=== PATIENT | female | born 1940 | race African-American/Black ===

== ENCOUNTER 2016-11-26 17:20 | Emergency (ER) | payer BC, MEDICARE ==
[~2016-11-26] VITALS: Ht 162.6 cm; Wt 64.0 kg
[2016-11-26] MEDS ORDERED: HYDR25TA PO (17:26)
[2016-11-26] MEDS ORDERED: ATEN-42 PO (17:26)
[2016-11-26 18:57] LABS: BASOPHILS % 0.9 % (0.0-2.0); EOSINOPHILS % 4.2 % (0.0-5.0); HEMATOCRIT. 34.4 % (36.0-48.0); HEMOGLOBIN. 11.7 g/dL (12.0-16.0); LYMPHOCYTES % 36.4 % (20.0-50.0); MEAN CORPUSCULAR HEMOGLOBIN 32.9 pg (28.0-32.0); MEAN CORPUSCULAR VOLUME 96.7 fL (81.0-99.0); MEAN PLATELET VOLUME 7.7 fl (7.4-10.4); MONOCYTES % 10.7 % (2.0-8.0); NEUTROPHILS % 47.8 % (40.0-76.0); PLATELET 263 x1000/uL (130-400); PROTHROMBIN TIME 10.6 sec (9.4-11.6); RED BLOOD CELL COUNT 3.56 mill/uL (4.2-5.4)
[2016-11-26 19:06] LABS: CARBON DIOXIDE 32 mEq/L (21-32); CHLORIDE 102 mEq/L (98-107); TROPONIN I < 0.02 ng/mL (0.00-0.04)
[2016-11-26] MEDS ORDERED: POTASSIUM CHLORIDE 20MEQ TABLET SR PO ONE (19:15)
[2016-11-26 20:00] VITALS: BP 135/79
== END 2016-11-26 20:06 | disposition home or self-care (01) ==
LOC: ER 17:20
DX: R07.9 Chest pain, unspecified (principal); R00.2 Palpitations; E87.6 Hypokalemia; I10 Essential (primary) hypertension
CPT/HCPCS: 36415; 71010; 80053; 83880; 84484; 85025; 85610; 93005; 99285

== ENCOUNTER 2017-07-17 19:16 | Emergency (ER) | payer MEDICARE ==
[~2017-07-17] VITALS: Ht 162.6 cm; Wt 64.0 kg
[~2017-07-17 19:16] MED LIST: ATEN-42 PO; HYDR25TA PO
[2017-07-18 00:35] VITALS: BP 167/70
[2017-07-18] MEDS ORDERED: ACETAMINOPHEN 325MG TABLET PO ONE (03:15)
== END 2017-07-18 03:46 | disposition home or self-care (01) ==
LOC: ER 22:14
DX: M77.31 Calcaneal spur, right foot (principal); I10 Essential (primary) hypertension; Z85.3 Personal history of malignant neoplasm of breast
CPT/HCPCS: 73630; 99284

== ENCOUNTER 2018-11-02 19:10 | Emergency (ER) | payer MEDICARE ==
[~2018-11-02] VITALS: Ht 162.6 cm; Wt 64.0 kg
[2018-11-02 19:19] VITALS: BP 119/75
== END 2018-11-02 20:20 | disposition left against medical advice (07) ==
LOC: ER 19:10
DX: N64.4 Mastodynia (principal); Z53.21 Procedure and treatment not carried out due to patient leaving prior to being seen by health care provider

== ENCOUNTER 2022-02-06 22:21 | Inpatient (IN) | payer MEDICARE, BC ==
[~2022-02-06] VITALS: Ht 167.6 cm; Wt 70.8 kg
[~2022-02-06 22:21] MED LIST changes: +ALPR-339 PO; +ALPR-392 PO; +ASPI-1497 PO; +ATOR40TA70 PO; +CITA10SO PO; -HYDR25TA PO; +ISOS60TA76 PO; +LOSA50TA41 PO; +MEMA10TA55 PO; +METO-385 PO; +QUET25TA36 PO
[2022-02-06] MEDS ORDERED: CEFTRIAXONE 1 G PREMIX 50 ML IV ONE (23:45)
[2022-02-06] MEDS ORDERED: AZITHROMYCIN 500MG/250ML 250 ML IV ONE (23:45)
[2022-02-06] MEDS ORDERED: SODIUM CHLORIDE 0.9% 1000ML BAG (SEPSIS BOLUS) IV ONE (23:45)
[2022-02-07] VITALS (12 sets, daily range): BP systolic 137–216; BP diastolic 57–111
[2022-02-07 00:19] LABS: BASOPHILS % 0.6 % (0.0-2.0); EOSINOPHILS % 2.1 % (0.0-5.0); HEMOGLOBIN. 11.1 g/dL (12.0-16.0); LYMPHOCYTES % 16.1 % (20.0-50.0); MEAN CORPUSCULAR HEMOGLOBIN 32.1 pg (28.0-32.0); MEAN CORPUSCULAR VOLUME 95.5 fL (81.0-99.0); MEAN PLATELET VOLUME 7.8 fl (7.4-10.4); MONOCYTES % 8.2 % (2.0-8.0); PLATELET 218 x1000/uL (130-400); RED BLOOD CELL COUNT 3.45 mill/uL (4.2-5.4)
[2022-02-07 00:28] LABS: CHLORIDE 107 mEq/L (98-107)
[2022-02-07 00:30] LABS: PARTIAL THROMBOPLASTIN TIME 27.2 sec (23.4-31.0); PROTHROMBIN TIME 10.9 sec (9.6-11.0)
[2022-02-07 01:43] LABS: CLARITY URINE CLEAR (CLEAR); COLOR URINE YELLOW (YELLOW); KETONES URINE TRACE (NEGATIVE); LEUKOCYTE ESTERASE URINE TRACE (NEGATIVE); NITRITE URINE NEGATIVE (NEGATIVE); OCCULT BLOOD URINE NEGATIVE (NEGATIVE); PROTEIN URINE NEGATIVE (NEGATIVE)
[2022-02-07] MEDS ORDERED: DOCUSATE SODIUM 100MG CAPSULE PO PRN (03:30)
[2022-02-07] MEDS ORDERED: ONDANSETRON HCL 4MG/2ML INJ IV PRN (03:30)
[2022-02-07] MEDS ORDERED: DIPHENHYDRAMINE 50MG/ML VIAL IV PRN (03:30)
[2022-02-07] MEDS ORDERED: GUAIFENESIN 200MG/10ML SUGAR FREE UDC PO PRN (03:30)
[2022-02-07] MEDS ORDERED: CLONIDINE 0.1MG TABLET PO PRN (03:30)
[2022-02-07] MEDS ORDERED: IPRATROPIUM/ALBUTEROL 0.5-3(2.5)MG/3ML NEB HHN PRN (03:30)
[2022-02-07] MEDS ORDERED: MAGNESIUM/ALUMINUM HYDROXIDE/SIMETHICONE 30ML UDC PO PRN (03:30)
[2022-02-07] MEDS ORDERED: ACETAMINOPHEN 650MG SUPP PR PRN (03:30)
[2022-02-07] MEDS: GABAPENTIN 100MG CAPSULE PO SCH ×3 (06:00→21:12)
[2022-02-07] MEDS: PANTOPRAZOLE 40MG DR TABLET PO SCH (07:05)
[2022-02-07] MEDS: MEMANTINE HCL 10MG TABLET PO SCH ×2 (09:00→21:12)
[2022-02-07] MEDS: ACETAMINOPHEN 325MG TABLET PO PRN ×2 (11:29→21:13)
[2022-02-07] MEDS: ASPIRIN 81MG TABLET PO SCH (11:29)
[2022-02-07] MEDS: ISOSORBIDE MONONITRATE 60MG TABLET SR 24HR PO SCH (11:30)
[2022-02-07] MEDS: CITALOPRAM HYDROBROMIDE 10MG TABLET PO SCH (11:30)
[2022-02-07] MEDS: AMLODIPINE 5MG TABLET PO SCH (11:30)
[2022-02-07] MEDS: LOSARTAN POTASSIUM 50 MG TABLET PO SCH (11:30)
[2022-02-07] MEDS: QUETIAPINE FUMARATE 25MG TABLET PO SCH (11:30)
[2022-02-07] MEDS: ENOXAPARIN 40MG/0.4ML SYR SUBCUT SCH (11:31)
[2022-02-07] MEDS: ATORVASTATIN CALCIUM 40MG TABLET PO SCH (21:12)
[2022-02-08] VITALS (10 sets, daily range): BP systolic 135–205; BP diastolic 70–154
[2022-02-08 06:52] LABS: BASOPHILS % 0.7 % (0.0-2.0); EOSINOPHILS % 2.5 % (0.0-5.0); HEMATOCRIT. 38.3 % (36.0-48.0); HEMOGLOBIN. 12.7 g/dL (12.0-16.0); LYMPHOCYTES % 22.9 % (20.0-50.0); MEAN CORPUSCULAR HEMOGLOBIN 31.4 pg (28.0-32.0); MEAN CORPUSCULAR VOLUME 94.6 fL (81.0-99.0); MEAN PLATELET VOLUME 7.7 fl (7.4-10.4); MONOCYTES % 8.7 % (2.0-8.0); NEUTROPHILS % 65.2 % (40.0-76.0); PLATELET 257 x1000/uL (130-400); RED BLOOD CELL COUNT 4.05 mill/uL (4.2-5.4); RED CELL DISTRIBUTION WIDTH 14.4 % (11.6-14.6)
[2022-02-08] MEDS: PANTOPRAZOLE 40MG DR TABLET PO SCH (07:18)
[2022-02-08] MEDS: GABAPENTIN 100MG CAPSULE PO SCH ×2 (07:18→13:32)
[2022-02-08] MEDS: QUETIAPINE FUMARATE 25MG TABLET PO SCH (08:42)
[2022-02-08] MEDS: MEMANTINE HCL 10MG TABLET PO SCH ×2 (08:42→21:00)
[2022-02-08] MEDS: ISOSORBIDE MONONITRATE 60MG TABLET SR 24HR PO SCH (08:42)
[2022-02-08] MEDS: ASPIRIN 81MG TABLET PO SCH (08:42)
[2022-02-08] MEDS: CITALOPRAM HYDROBROMIDE 10MG TABLET PO SCH (08:42)
[2022-02-08] MEDS: AMLODIPINE 5MG TABLET PO SCH (08:43)
[2022-02-08] MEDS: LOSARTAN POTASSIUM 50 MG TABLET PO SCH (08:43)
[2022-02-08] MEDS: ENOXAPARIN 40MG/0.4ML SYR SUBCUT SCH (08:44)
[2022-02-08 10:15] LABS: CHLORIDE 104 mEq/L (98-107)
[2022-02-08 10:28] LABS: T4 FREE 0.86 ng/dL (0.76-1.46)
[2022-02-08] MEDS ORDERED: DEXT 5%/0.45% NACL 1000ML 1,000 ML IV ONE (15:15)
[2022-02-08] MEDS ORDERED: VANCOMYCIN 1GM PMX (XELLIA) 200 ML IV SCH (18:00)
[2022-02-08] MEDS ORDERED: VANCOMYCIN 750MG PREMIX 150 ML IV SCH (18:00)
[2022-02-08] MEDS: ATORVASTATIN CALCIUM 40MG TABLET PO SCH (21:00)
[2022-02-09] VITALS: BP 141/71
[2022-02-09 04:00] VITALS: BP 136/74
[2022-02-09] MEDS ORDERED: FAMOTIDINE 20MG TABLET PO SCH (06:50)
[2022-02-09] MEDS ORDERED: LEVOTHYROXINE SODIUM 25MCG TABLET PO SCH (06:50)
[2022-02-09 07:51] VITALS: BP 151/97
[2022-02-09] MEDS: MEMANTINE HCL 10MG TABLET PO SCH (09:00)
[2022-02-09] MEDS ORDERED: VANCOMYCIN 1.25GM PMX (XELLIA) 250 ML IV NR (09:00)
[2022-02-09 09:02] LABS: VITAMIN B12 SERUM 502 pg/mL (211-911)
[2022-02-09] MEDS: QUETIAPINE FUMARATE 25MG TABLET PO SCH (09:46)
[2022-02-09] MEDS: LOSARTAN POTASSIUM 50 MG TABLET PO SCH (09:46)
[2022-02-09] MEDS: ASPIRIN 81MG TABLET PO SCH (09:46)
[2022-02-09] MEDS: AMLODIPINE 5MG TABLET PO SCH (09:46)
[2022-02-09] MEDS: CITALOPRAM HYDROBROMIDE 10MG TABLET PO SCH (09:47)
[2022-02-09] MEDS: ISOSORBIDE MONONITRATE 60MG TABLET SR 24HR PO SCH (09:47)
[2022-02-09] MEDS: ENOXAPARIN 40MG/0.4ML SYR SUBCUT SCH (09:47)
[2022-02-09 12:00] VITALS: BP 130/99
[2022-02-09 13:57] VITALS: BP 151/97
== END 2022-02-09 14:35 | disposition home health service (06) | DRG 74 ==
LOC: ER 22:21 → UNDOADMIN 02-07 01:55 → MICUSO 02-07 01:55 → 3WST 02-07 12:14
PROVIDERS: ADMIT Internal Medicine; ATTEND Internal Medicine
PROC: 4A00X4Z Measurement of Central Nervous Electrical Activity, External Approach (ICD-10-PCS; principal; 2022-02-09)
DX: G90.8 Other disorders of autonomic nervous system (principal); N39.0 Urinary tract infection, site not specified; F02.A3 Dementia in other diseases classified elsewhere, mild, with mood disturbance; I50.42 Chronic combined systolic (congestive) and diastolic (congestive) heart failure; I95.9 Hypotension, unspecified; I25.10 Atherosclerotic heart disease of native coronary artery without angina pectoris; G30.9 Alzheimer's disease, unspecified; I11.0 Hypertensive heart disease with heart failure; I44.7 Left bundle-branch block, unspecified; I48.91 Unspecified atrial fibrillation; F32.A Depression, unspecified; E03.9 Hypothyroidism, unspecified; Z79.899 Other long term (current) drug therapy; Z85.038 Personal history of other malignant neoplasm of large intestine; Z85.3 Personal history of malignant neoplasm of breast
CPT/HCPCS: 36415; 71045; 80048; 80053; 81003; 82607; 82962; 83605; 83880; 84145; 84439; 84443; 84484; 85025; 93005; 93306; 93880; 93970; 95816; 97162; 97166; 99285; J0456; J0696; J1650; J3370; J7030

== ENCOUNTER 2022-12-30 13:14 | Emergency (ER) | payer MEDICARE, BC ==
[~2022-12-30] VITALS: Ht 167.6 cm; Wt 77.0 kg
[~2022-12-30 13:14] MED LIST changes: -ALPR-339 PO
[2022-12-30 13:16] VITALS: O2SAT 97
[2022-12-30 15:25] LABS: BASOPHILS % 0.4 % (0.0-2.0); EOSINOPHILS % 3.1 % (0.0-5.0); HEMATOCRIT. 32.7 % (36.0-48.0); HEMOGLOBIN. 11.1 g/dL (12.0-16.0); LYMPHOCYTES % 36.2 % (20.0-50.0); MEAN CORPUSCULAR HGB CONC 33.9 g/dL (31.0-37.0); MEAN CORPUSCULAR VOLUME 94.6 fL (81.0-99.0); MEAN PLATELET VOLUME 7.8 fl (7.4-10.4); MONOCYTES % 9.7 % (2.0-8.0); NEUTROPHILS % 50.6 % (40.0-76.0); PLATELET 200 x1000/uL (130-400); RED BLOOD CELL COUNT 3.45 mill/uL (4.2-5.4); RED CELL DISTRIBUTION WIDTH 13.9 % (11.6-14.6); WHITE BLOOD COUNT 4.9 x1000/uL (4.5-11.0)
[2022-12-30 15:33] LABS: PROTHROMBIN TIME 11.2 sec (9.6-11.0)
[2022-12-30 15:35] LABS: CHLORIDE 113 mEq/L (98-107); INDEX HEMOLYSI 1 (1-3); INDEX ICTERIC 1 (1-4); INDEX LIPEMIC 1 (1-3); POTASSIUM 3.6 mEq/L (3.5-5.1); SODIUM 143 mEq/L (136-145)
[2022-12-30 15:45] LABS: ALANINE AMINOTRANSFERASE 39 IU/L (13-61); ASPARTATE AMINOTRANSFERASE 25 IU/L (15-37); BILIRUBIN TOTAL 0.4 mg/dL (0.1-1.0); CALCIUM 8.4 mg/dL (8.5-10.1); CARBON DIOXIDE 29 mEq/L (21-32); CREATININE 0.5 mg/dL (0.6-1.3); GLUCOSE 85 mg/dL (70-105); PROTEIN TOTAL 6.2 g/dL (6.0-8.3); TROPONIN I HIGH SENSITIVITY 8 ng/L (<54); UREA NITROGEN BLOOD 7 mg/dL (7-21)
[2022-12-30 17:03] LABS: CLARITY URINE CLEAR (CLEAR); COLOR URINE YELLOW (YELLOW); GLUCOSE URINE NEGATIVE (NEGATIVE); KETONES URINE NEGATIVE (NEGATIVE); LEUKOCYTE ESTERASE URINE NEGATIVE (NEGATIVE); NITRITE URINE NEGATIVE (NEGATIVE); OCCULT BLOOD URINE NEGATIVE (NEGATIVE); PROTEIN URINE NEGATIVE (NEGATIVE); SPECIFIC GRAVITY URINE 1.008 (1.005-1.030); UROBILINOGEN URINE 0.2 E.U./dL (0.2-1.0)
[2022-12-30 18:24] LABS: TROPONIN I HIGH SENSITIVITY 8 ng/L (<54)
[2022-12-30 21:40] VITALS: BP 117/97; PULSE 80; RESP 18
== END 2022-12-30 22:02 | disposition home or self-care (01) ==
LOC: ER 14:52
DX: R55 Syncope and collapse (principal); I11.0 Hypertensive heart disease with heart failure; I50.9 Heart failure, unspecified; Z79.899 Other long term (current) drug therapy
CPT/HCPCS: 36415; 71045; 80053; 81003; 84484; 85025; 86850; 86900; 93005; 99285